=== PATIENT | male | born 1970 | race Caucasian/White ===

== ENCOUNTER 2022-02-22 06:58 | Day surgery (SDC) | payer BC ==
[~2022-02-22 06:58] MED LIST: Lactated Ringers 1,000 ML IV SCH; Lidocaine 1%/Sod Bicarbonate in NS 8.4% 1 ML Syringe IDERM PRN; Morphine 8 MG, EPINEPHrine 0.3 MG, Cefuroxime 750 MG, Ketorolac 30 MG, Sodium Chloride ... PRN; Sodium Chloride 0.9% 10 ML Syringe FLUSH PRN; Sodium Chloride 0.9% 10 ML Syringe FLUSH SCH; Vancomycin 1 GM SDV ONE
[2022-02-22] MEDS ORDERED: Midazolam 1 MG/ML 2 ML SDV ONE (07:05)
[2022-02-22] MEDS ORDERED: fentaNYL 100 MCG/2 ML SDV ONE (07:05)
[2022-02-22] MEDS ORDERED: ceFAZolin 2 GM Vial ONE (07:05)
[2022-02-22] MEDS ORDERED: Lactated Ringers 1,000 ML ONE (07:05)
[2022-02-22] MEDS ORDERED: Propofol 200 MG/20 ML SDV ONE ×3 (07:05→09:30)
[2022-02-22] MEDS ORDERED: Ropivacaine 0.5% 5 MG/ML 30 ML SDV ONE (07:29)
[2022-02-22] MEDS ORDERED: EPINEPHrine 1 MG/ML SDV ONE (07:29)
[2022-02-22] MEDS ORDERED: Ketorolac 30 MG/ML SDV ONE (08:13)
[2022-02-22] MEDS ORDERED: Dexamethasone 4 MG/ML 5 ML MDV ONE (08:13)
[2022-02-22] MEDS ORDERED: Ondansetron 4 MG/2 ML SDV ONE (08:13)
[2022-02-22] MEDS ORDERED: Ondansetron 4 MG/2 ML SDV IVPUSH PRN (08:51)
[2022-02-22] MEDS ORDERED: HYDROmorphone 0.5 MG/0.5 ML Syringe IVPUSH PRN (08:51)
[2022-02-22] MEDS ORDERED: fentaNYL 100 MCG/2 ML SDV IVPUSH PRN (08:51)
[2022-02-22] MEDS ORDERED: oxyCODONE 5 MG Tab PO SCH (13:08)
== END 2022-02-22 13:32 | disposition home or self-care (01) ==
LOC: JD.SDS 06:58
PROVIDERS: ATTEND Orthopaedic Surgery
DX: M17.12 Unilateral primary osteoarthritis, left knee (principal); Z79.899 Other long term (current) drug therapy; Z79.82 Long term (current) use of aspirin
CPT/HCPCS: 0055T; 27447; 73560; 97110; 97116; 97161; A9270; C1713; C1776; J0171; J0690; J0697; J1100; J1885; J2250; J2270; J2405; J2704; J2795; J3010; J3370; J7120; 01402; 64450; 76942

== ENCOUNTER 2022-04-11 09:40 | Day surgery (SDC) | payer BC ==
[~2022-04-11 09:40] MED LIST changes: -Lactated Ringers 1,000 ML IV SCH; +Lidocaine 1% 5 ML VIAL ONE; -Lidocaine 1%/Sod Bicarbonate in NS 8.4% 1 ML Syringe IDERM PRN; +Midazolam 1 MG/ML 2 ML SDV ONE; -Morphine 8 MG, EPINEPHrine 0.3 MG, Cefuroxime 750 MG, Ketorolac 30 MG, Sodium Chloride ... PRN; +Propofol 200 MG/20 ML SDV ONE; -Sodium Chloride 0.9% 10 ML Syringe FLUSH PRN; -Sodium Chloride 0.9% 10 ML Syringe FLUSH SCH; -Vancomycin 1 GM SDV ONE; +fentaNYL 100 MCG/2 ML SDV ONE
[2022-04-11] MEDS ORDERED: Lidocaine 1% 0 ML ONE (10:10)
[2022-04-11] MEDS ORDERED: EPINEPHrine 1 MG/ML SDV ONE (10:26)
[2022-04-11] MEDS ORDERED: Ropivacaine 0.5% 5 MG/ML 30 ML SDV ONE (10:26)
[2022-04-11] MEDS ORDERED: Lidocaine 1%/Sod Bicarbonate in NS 8.4% 1 ML Syringe IDERM PRN (11:21)
[2022-04-11] MEDS ORDERED: Sodium Chloride 0.9% 10 ML Syringe FLUSH PRN (11:21)
[2022-04-11] MEDS ORDERED: Ketamine 500 mg/10 ML MDV ONE (11:23)
[2022-04-11] MEDS ORDERED: Lactated Ringers 1,000 ML IV SCH (11:30)
[2022-04-11] MEDS ORDERED: Ondansetron 4 MG/2 ML SDV ONE (11:37)
[2022-04-11] MEDS ORDERED: fentaNYL 100 MCG/2 ML SDV IVPUSH PRN (12:30)
[2022-04-11] MEDS ORDERED: oxyCODONE 5 MG Tab PO PRN (12:30)
[2022-04-11] MEDS ORDERED: HYDROmorphone 0.5 MG/0.5 ML Syringe IVPUSH PRN (12:30)
[2022-04-11] MEDS ORDERED: Ondansetron 4 MG/2 ML SDV IVPUSH PRN (12:30)
[2022-04-11] MEDS ORDERED: Sodium Chloride 0.9% 10 ML Syringe FLUSH SCH (21:00)
== END 2022-04-11 13:35 | disposition home or self-care (01) ==
LOC: MERGE 09:40 → JD.SDS 09:40 → EDSEX 13:45
PROVIDERS: ATTEND Orthopaedic Surgery
DX: T84.82XA Fibrosis due to internal orthopedic prosthetic devices, implants and grafts, initial encounter (principal); E66.9 Obesity, unspecified; E55.9 Vitamin D deficiency, unspecified; M19.90 Unspecified osteoarthritis, unspecified site; Z98.890 Other specified postprocedural states; Z96.652 Presence of left artificial knee joint; Z79.899 Other long term (current) drug therapy
CPT/HCPCS: 27599; A9270; J0171; J1170; J2250; J2405; J2704; J2795; J3010; J3490; J7120; 01380; 64447; 76942